=== PATIENT | female | born 1960 | race Caucasian/White ===

== ENCOUNTER 2018-12-10 21:30 | Emergency (ER) | payer OTHER, SELFPAY ==
--- NOTE | 2018-12-10 21:49 | ED.PDOC ---
History of Present Illness - General Chief Complaint: Lower Extremity Injury Stated Complaint: left knee injury, fell on porch Time Seen by Provider: 12/10/18 21:49 Source: patient Exam Limitations: no limitations - History of Present Illness Initial Comments: Tiff Mayorga 58 y/o female came to ER with dull left knee pain and right middle finger pain after she slipped and twisted left ankle on the back porch of her house tonight stated unable to get up and need to call up ambulance to help her.Denies head,neck,chest abdominal pelvic and hip pains.Stated that her pain is only on her left knee. Occurred: just prior to arrival Pain - Lower Extremity: moderate: Left Knee Method of Injury: fell, twisted Improving Factors: rest Worsening Factors: movement Allergies/Adverse Reactions: Allergies Penicillins Allergy (Verified 12/10/18 22:32) Home Medications: Ambulatory Orders Acetaminophen W/ Codeine [Tylenol w/Codeine 300-30 mg] 1 tab PO Q4HR #30 tab 12/11/18 Review of Systems - Review of Systems Constitutional: States: no symptoms reported EENTM: States: no symptoms reported Respiratory: States: no symptoms reported Cardiology: States: no symptoms reported Musculoskeletal: States: see HPI Neurological: States: no symptoms reported All other Systems: Reviewed and Negative, No Change from Baseline Past Medical History (General) - Patient Medical History Surgical History: other - c -sections - Social History Hx Tobacco Use: No Hx Alcohol Use: No Hx Substance Use: No Hx Substance Use Treatment: No Hx Depression: Yes - Female History Patient is a Female of Child Bearing Age (10 -59 yrs old): Yes Patient : No Family Medical History - Family History Mother Family History: Unknown Living Status: Still Living Physical Exam - Physical Exam General Appearance: Alert, Comfortable, No apparent distress Eyes, Ears, Nose, Throat: PERRL/EOMI, normal ENT inspection Neck: non-tender, full range of motion, supple, normal inspection Cardiovascular/Respiratory: regular rate, rhythm, no M/R/G, normal peripheral pulses, normal breath sounds Gastrointestinal/Abdominal: non-tender, no organomegaly Back: no CVA tenderness, no vertebral tenderness Thigh/Hip: normal inspection, non-tender, no evidence of injury, normal ROM Leg: normal inspection, non-tender, no evidence of injury Knee: bone tenderness - left knee, limited ROM - pain left, soft tissue tenderness, swelling - lower left knee Ankle: normal inspection, non-tender, no evidence of injury, normal ROM Foot: normal inspection, non-tender, no evidence of injury Neuro/Tendon: normal sensation, responds to pain, no evidence tendon injury, other - neuro vascular intact distally Mental Status: alert, oriented x 3 Progress - Progress Progress: 12/11/18 00:08 Vital Signs - 8 hr 12/10/18 21:41 Temperature 99.6 F Pulse Rate [ 59 L left] Respiratory 18 Rate Blood Pressure 119/80 [left] O2 Sat by Pulse 97 Oximetry - Results/Orders Results/Orders: Discuss Left knee x-ray and CT left knee with patient also called up Dr. Anand Orthopedist recommended knee immobilizer and crutches he advised to let patient call his office 12 December 2018 for follow up. - EKG/XRAY/CT CT Ordered: Yes - comminuted fractur tibial plateu left intact vascularity;no extravasation o Departure - Departure Clinical Impression: Fall Qualifiers: Encounter type: initial encounter Qualified Code(s): W19.XXXA - Unspecified fall, initial encounter Closed fracture of lateral portion of left tibial plateau Qualifiers: Encounter type: initial encounter Qualified Code(s): S82.122A - Displaced fracture of lateral condyle of left tibia, initial encounter for closed fracture Fracture, fibula, proximal Qualifiers: Encounter type: initial encounter Fracture type: closed Fracture morphology: unspecified fracture morphology Laterality: left Qualified Code(s): S82.832A - Other fracture of upper and lower end of left fibula, initial encounter for closed fracture Time of Disposition: 00:24 Disposition: Discharge to Home or Self Care Condition: Fair Departure Forms: ED Discharge - Pt. Copy, Patient Portal Self Enrollment Instructions: Tibial Plateau Fracture, Tibial Plateau Fracture (DC) Referrals: Dax Thomas MD [Family Provider] - 1-2 Weeks Prescriptions: Acetaminophen W/ Codeine [Tylenol w/Codeine 300-30 mg] 1 tab PO Q4HR #30 tab Home Medications: Ambulatory Orders Acetaminophen W/ Codeine [Tylenol w/Codeine 300-30 mg] 1 tab PO Q4HR #30 tab 12/11/18 Additional Instructions: NEED TO CALL UP ORTHOPEDIST office [phone] ;12 December 2018 for follow up;Return to ER as needed
[2018-12-10] MEDS ORDERED: TETANUS,DIPHTHERIA,PERTUSSIS 1 EA SYG IM ONE (21:51)
[2018-12-10] MEDS ORDERED: KETOROLAC TROMETHAMINE INJ 30 MG/ML VIAL IM ONE (22:06)
[2018-12-10 22:10] VITALS: O2SAT 97
[2018-12-10] MEDS ORDERED: KETOROLAC TROMETHAMINE INJ 30 MG/ML VIAL IV ONE (22:18)
--- NOTE | 2018-12-10 22:27 | RAD ---
EXAM DESCRIPTION: Knee,Left 2 or More Views CLINICAL HISTORY: 58 years Female feel off porch, deformity to knee noted, pain COMPARISON: None TECHNIQUE: Four images of the left knee were obtained. FINDINGS: Comminuted impacted tibial plateau fractures with medial and lateral displacement of fracture fragments. Involvement articular surface. Joint space narrowing. Additional fractures proximal fibula. There is involvement of the fibular head as well as the diametaphyseal region of the proximal fibula. Suspected joint effusion with possible fatty component. Mild bony demineralization. No patellar fracture. IMPRESSION: Extensive comminuted impacted tibial plateau fractures with medial and lateral displacement of fracture fragments. Associated joint space narrowing. Additional fractures proximal fibula. Electronically signed by: Olivia Horn MD 12/10/2018 10:25 PM CDT
--- NOTE | 2018-12-10 22:29 | RAD ---
EXAM: XR Right Finger(s), 2 or More Views CLINICAL HISTORY: The patient is 58 years old and is Female; pain TECHNIQUE: Frontal, lateral and oblique views of finger(s) of the right hand. COMPARISON: No relevant prior studies available. FINDINGS: An approximate 5 mm low density within the soft tissues of the third finger is present. Findings are concerning for avulsion fracture. Laceration along the dorsum of the third finger is present. IMPRESSION: An approximate 5 mm low density within the soft tissues of the third finger is present. Findings are concerning for avulsion fracture. Electronically signed by: Brianne Smith MD 12/10/2018 10:27 PM CDT
[2018-12-10] MEDS ORDERED: CHLORHEXIDINE GLUCONATE 4 % 15 ML UD TOP ONE (23:34)
--- NOTE | 2018-12-10 23:51 | CT ---
EXAM DESCRIPTION: Lower Extremity w/Contrast CLINICAL HISTORY: 58 years Female left tib/fib fx COMPARISON: Radiographs of the left knee performed on the same day. TECHNIQUE: Images were obtained in axial, sagittal, and coronal planes. Intravenous contrast was administered. This exam was performed according to our departmental dose-optimization program which includes use of Automated Exposure Control, adjustment of the mA and/or kV according to patient size and/or use of iterative reconstruction technique. FINDINGS: Markedly comminuted impacted fractures tibial plateau with involvement articular surface. Diastasis of fracture fragments laterally. Additional comminuted fractures diametaphyseal region proximal fibula. Bone fragment versus soft tissue calcification adjacent to lateral distal femoral condyle. No fracture involving the patella. Satisfactory alignment distal femur and proximal tibia. Moderate joint effusion laterally with hemarthrosis noted. Fat blood component present. Intact popliteal artery. Intact trifurcation with opacified anterior tibial artery as well as tibioperoneal trunk, posterior tibial, and peroneal arteries proximally. No extravasation of contrast seen. Integrity of the anterior and posterior cruciate ligaments not confirmed. Suspected disruption lateral collateral ligament complex. Posterior lateral corner injury likely. IMPRESSION: Severely comminuted impacted fractures left tibial plateau. Additional comminuted fractures proximal fibular head. Moderate joint effusion with hemarthrosis noted. Intact vasculature at level of the left knee. Popliteal artery and trifurcation identified with no extravasation of contrast seen. Suspected disruption lateral collateral ligament complex and injury posterior lateral corner. Magnetic resonance correlation suggested. Electronically signed by: Olivia Horn MD 12/10/2018 11:49 PM CDT
[2018-12-11] MEDS ORDERED: fentaNYL CITRATE INJ 50 MCG/ML AMP IV ONE (00:22)
[2018-12-11] MEDS ORDERED: HYDROCOD/APAP 10/325 (ER DISP) # 3 tablets PO ONE (00:22)
[2018-12-11] MEDS ORDERED: NEOMYCIN-BACITRACIN-POLYMYXIN 0.9 GM UD TOP ONE (00:37)
[2018-12-11] MEDS ORDERED: CLINDAMYCIN HCL CAP 150 MG CAP PO ONE (01:03)
[2018-12-11] MEDS ORDERED: CLINDAMYCIN HCL CAP 150 MG CAP ONE (01:05)
[2018-12-11 01:23] VITALS: BP 150/62; TEMP 98.9
== END 2018-12-11 01:20 | disposition home or self-care (01) ==
LOC: ER 21:30
DX: S82.122A Displaced fracture of lateral condyle of left tibia, initial encounter for closed fracture (principal); S82.832A Other fracture of upper and lower end of left fibula, initial encounter for closed fracture; F32.9 Major depressive disorder, single episode, unspecified; M79.641 Pain in right hand; Z23 Encounter for immunization; Z88.0 Allergy status to penicillin; W01.0XXA Fall on same level from slipping, tripping and stumbling without subsequent striking against object, initial encounter; Y92.89 Other specified places as the place of occurrence of the external cause
CPT/HCPCS: 36415; 73140; 73560; 73701; 82565; 90471; 90715; J1885; J3010